=== PATIENT | female | born 1960 | race American Indian/Alaskan Native ===

== ENCOUNTER 2016-11-17 10:41 | Emergency (ER) | payer MEDICARE ==
--- NOTE | 2016-11-17 11:10 | Emergency Department Report ---
ED General Adult HPI - General Chief complaint: Abdominal Pain Stated complaint: ABDOMINAL PAIN/DIARRHEA Time Seen by Provider: 11/17/16 11:00 Source: patient, EMS (ems notes not available at time of chart dictation), RN notes reviewed, old records reviewed Mode of arrival: Stretcher Limitations: Physical Limitation - History of Present Illness Initial comments: This is a 55-year-old female. She is previously unknown to me. Past medical history includes type 2 diabetes, hypertension, stage III chronic kidney disease, heart disease, paroxysmal atrial fibrillation, stroke with residual left-sided hemiparesis, severe peripheral artery disease, history of left-sided below-knee amputation. The patient presents to the ER with a complaint of diarrhea since yesterday, and suprapubic pain and inability to urinate. Her primary care doctor is Dr. Daryl Ross. In the past, she has been seen by nephrology, Dr. Moser Her medical records currently do not indicate that she has a private senior sql developer. The patient declines pain medicine and nausea medicine. The patient cannot describe the color of the diarrhea. She reports multiple episodes overnight. She doesn't think that she is taking antibiotics recently but is not certain. -: Gradual Location: abdomen Radiation: non-radiation Quality: aching Consistency: constant Improves with: other (suprapubic pain improved with placement of a Nunes catheter) Worsens with: movement Associated Symptoms: malaise. denies: confusion, chest pain, cough, shortness of breath, syncope - Related Data Home Medications Medication Instructions Recorded Confirmed Last Taken Nitroglycerin [Nitrostat] 0.4 mg SL Q5M PRN 09/27/15 11/17/16 Unknown Acetaminophen [Tylenol] 325 mg PO Q8H PRN 11/17/16 11/17/16 Unknown Cetirizine HCl [ZyrTEC] 10 mg PO DAILY 11/17/16 11/17/16 Unknown Clopidogrel Bisulfate [Plavix] 75 mg PO DAILY 11/17/16 11/17/16 Unknown Docusate Sodium [Colace] 100 mg PO BID PRN 11/17/16 11/17/16 Unknown Loperamide HCl [Imodium A-D] 2 mg PO Q6H PRN 11/17/16 11/17/16 Unknown NIFEdipine [Nifedipine ER] 60 mg PO BID 11/17/16 11/17/16 Unknown guaiFENesin DM [Robitussin Dm] 15 ml PO Q6HR PRN 11/17/16 11/17/16 Unknown Previous Rx's Medication Instructions Recorded Last Taken Type Metoprolol [Lopressor TAB] 50 mg PO BID tablet 10/04/15 Unknown Rx oxyCODONE /ACETAMINOPHEN [Percocet 1 tab PO Q4HR PRN #30 tablet 10/04/15 Unknown Rx 5/325 mg] Nitrofurantoin [place]/M-Cryst 100 mg PO Q12HR #13 capsule 11/17/16 Unknown Rx [Macrobid CAP] Allergies Allergy/AdvReac Type Severity Reaction Status Date / Time aspirin Allergy Unknown Verified 09/27/15 10:48 iodine Allergy Unknown Verified 09/27/15 10:48 iron Allergy Unknown Verified 09/27/15 10:48 lactose Allergy Unknown Verified 09/27/15 10:48 lisinopril Allergy Unknown Verified 09/27/15 10:48 Penicillins Allergy Unknown Verified 09/27/15 10:48 ED Review of Systems ROS: Stated complaint: ABDOMINAL PAIN/DIARRHEA Other details as noted in HPI Constitutional: malaise Eyes: denies: eye discharge ENT: denies: epistaxis Respiratory: denies: cough Cardiovascular: denies: chest pain Gastrointestinal: abdominal pain, diarrhea Genitourinary: denies: dysuria Musculoskeletal: as per HPI Skin: denies: lesions Neurological: weakness Psychiatric: anxiety ED Past Medical Hx - Past Medical History Previous Medical History?: Yes Hx Hypertension: Yes Hx Congestive Heart Failure: Yes Hx Diabetes: Yes Hx Renal Disease: Yes (CKD STAGE 3) - Surgical History Additional Surgical History: amputatation LLE - Social History Smoking Status: Never Smoker Substance Use Type: None - Medications Home Medications: Home Medications Medication Instructions Recorded Confirmed Last Taken Type Nitroglycerin [Nitrostat] 0.4 mg SL Q5M PRN 09/27/15 11/17/16 Unknown History Metoprolol [Lopressor TAB] 50 mg PO BID tablet 10/04/15 11/17/16 Unknown Rx oxyCODONE /ACETAMINOPHEN [Percocet 1 tab PO Q4HR PRN #30 tablet 10/04/15 Unknown Rx 5/325 mg] Acetaminophen [Tylenol] 325 mg PO Q8H PRN 11/17/16 11/17/16 Unknown History Cetirizine HCl [ZyrTEC] 10 mg PO DAILY 11/17/16 11/17/16 Unknown History Clopidogrel Bisulfate [Plavix] 75 mg PO DAILY 11/17/16 11/17/16 Unknown History Docusate Sodium [Colace] 100 mg PO BID PRN 11/17/16 11/17/16 Unknown History Loperamide HCl [Imodium A-D] 2 mg PO Q6H PRN 11/17/16 11/17/16 Unknown History NIFEdipine [Nifedipine ER] 60 mg PO BID 11/17/16 11/17/16 Unknown History Nitrofurantoin [place]/M-Cryst 100 mg PO Q12HR #13 capsule 11/17/16 Unknown Rx [Macrobid CAP] guaiFENesin DM [Robitussin Dm] 15 ml PO Q6HR PRN 11/17/16 11/17/16 Unknown History ED Physical Exam - General Limitations: Physical Limitation General appearance: alert, in no apparent distress - Head Head exam: Present: atraumatic, normocephalic - Eye Eye exam: Present: normal appearance. Absent: nystagmus - ENT ENT exam: Present: normal orophraynx, mucous membranes moist, normal external ear exam - Neck Neck exam: Present: normal inspection, full ROM. Absent: tenderness, meningismus - Respiratory Respiratory exam: Present: normal lung sounds bilaterally. Absent: respiratory distress, wheezes, rales, rhonchi, stridor, chest wall tenderness, accessory muscle use, decreased breath sounds, prolonged expiratory - Cardiovascular Cardiovascular Exam: Present: regular rate, normal rhythm, normal heart sounds. Absent: bradycardia, tachycardia, irregular rhythm, systolic murmur, diastolic murmur, rubs, gallop - GI/Abdominal GI/Abdominal exam: Present: soft, tenderness (suprapubic tenderness, with no rebound, guarding or peritoneal signs), normal bowel sounds. Absent: distended , guarding, rebound, rigid, pulsatile mass - Extremities Exam Extremities exam: Present: normal inspection, other (status post left lower extremity below-knee amputation). Absent: tenderness, calf tenderness - Back Exam Back exam: Present: normal inspection. Absent: paraspinal tenderness, vertebral tenderness - Neurological Exam Neurological exam: Present: alert, oriented X3, other (Extraocular movements intact. Tongue midline. No facial droop. Facial sensation intact to light touch in the V1, V2, V3 distribution bilaterally. 5 and 5 strength in 4 extremities.. Sensation is intact to light touch in 4 extremities.). Absent: motor sensory deficit - Psychiatric Psychiatric exam: Present: normal affect, normal mood - Skin Skin exam: Present: warm, dry, intact, normal color. Absent: rash ED Course Vital Signs 11/17/16 11/17/16 11/17/16 10:44 10:45 11:00 Temperature 97.8 F Pulse Rate 83 84 79 Respiratory 18 20 Rate Blood Pressure 187/106 181/93 O2 Sat by Pulse 100 100 Oximetry 11/17/16 11/17/16 11/17/16 11:16 11:31 12:00 Temperature 98.4 F Pulse Rate 84 79 Respiratory 12 13 Rate Blood Pressure 181/93 180/92 O2 Sat by Pulse 100 100 Oximetry 11/17/16 11/17/16 11/17/16 12:31 13:01 13:31 Temperature Pulse Rate 77 79 84 Respiratory 15 12 15 Rate Blood Pressure 181/93 179/69 177/96 O2 Sat by Pulse 100 100 100 Oximetry 11/17/16 11/17/16 11/17/16 13:39 14:00 14:30 Temperature Pulse Rate 82 102 H 93 H Respiratory 23 28 H Rate Blood Pressure 177/96 159/98 156/85 O2 Sat by Pulse 100 100 Oximetry 11/17/16 15:01 Temperature Pulse Rate 97 H Respiratory 13 Rate Blood Pressure 153/77 O2 Sat by Pulse 100 Oximetry - Reevaluation(s) Reevaluation #1: 11/17/16 12:20 Differential diagnosis: Colitis, diverticulitis, constipation, obstruction, acute on chronic renal insufficiency, urinary retention, urinary tract infection Assessment and plan: 55-year-old female with complaint of diarrhea, suprapubic pain, and inability to urinate. Renal function worse than before. Potassium acceptable. Has chronic anemia. Urinalysis pending. Noncontrast CT scan of the abdomen and pelvis is pending. She declines pain medication and nausea medication. She did complain of diarrhea, but thus far has not produced a stool sample. Upon placement of a Nunes catheter, 350 mL of clear yellow urine was returned. Reevaluation #2: 11/17/16 12:23 patient is currently in clinical normal sinus at this time, her abdomen is not especially tender, she has a negative lactic acid at this time, therefore I think mesenteric ischemia is very unlikely Reevaluation #3: 11/17/16 13:00 CT scan demonstrates no acute disease. Macrobid ordered for urinary tract infection. Case is discussed with her senior sql developer that has seen her in the past, , who agrees that patient can follow-up with him as an outpatient with Nunes catheter. He recommends 1 L of normal saline. Hydralazine is also ordered. ED Medical Decision Making - Lab Data Result diagrams: 11/17/16 11:31 11/17/16 11:31 Vital Signs 11/17/16 11/17/16 10:45 11:16 Temperature 97.8 F 98.4 F Pulse Rate 84 Respiratory 18 Rate Blood Pressure 187/106 O2 Sat by Pulse 100 Oximetry Lab Results 11/17/16 11/17/16 11/17/16 Range/Units 11:20 11:31 11:31 WBC 6.3 (4.5-11.0) K/mm3 RBC 3.29 L (3.65-5.03) M/mm3 Hgb 9.9 L (10.1-14.3) gm/dl Hct 29.5 L (30.3-42.9) % MCV 89 (79-97) fl MCH 30 (28-32) pg MCHC 34 (30-34) % RDW 13.6 (13.2-15.2) % Plt Count 254 (140-440) K/mm3 Sodium 138 (137-145) mmol/L Potassium 4.2 (3.6-5.0) mmol/L Chloride 105.0 (98-107) mmol/L Carbon Dioxide 19 L (22-30) mmol/L Anion Gap 18 mmol/L BUN 15 (7-17) mg/dL Creatinine 2.4 H (0.7-1.2) mg/dL Estimated GFR 26 ml/min BUN/Creatinine Ratio 6.25 % Glucose 95 (65-100) mg/dL Lactic Acid (0.7-2.0) mmol/L Calcium 8.1 L (8.4-10.2) mg/dL Lipase 16 (13-60) units/L Urine Color Yellow (Yellow) Urine Turbidity Cloudy (Clear) Urine pH 6.0 (5.0-7.0) Ur Specific [place] 1.009 (1.003-1.030) Urine Protein >500 (Negative) mg/dL Urine Glucose (UA) Neg (Negative) mg/dL Urine Ketones Neg (Negative) mg/dL Urine Blood Sm (Negative) Urine Nitrite Neg (Negative) Urine Bilirubin Neg (Negative) Urine Urobilinogen < 2.0 (<2.0) mg/dL Ur Leukocyte Esterase Lg (Negative) Urine WBC (Auto) 169.0 H (0.0-6.0) /HPF Urine RBC (Auto) 3.0 (0.0-6.0) /HPF U Epithel Cells (Auto) < 1.0 (0-13.0) /HPF Urine Bacteria (Auto) 2+ (Negative) /HPF Urine WBC Clumps 3+ /HPF Urine Mucus 3+ /HPF 11/17/16 Range/Units 11:31 WBC (4.5-11.0) K/mm3 RBC (3.65-5.03) M/mm3 Hgb (10.1-14.3) gm/dl Hct (30.3-42.9) % MCV (79-97) fl MCH (28-32) pg MCHC (30-34) % RDW (13.2-15.2) % Plt Count (140-440) K/mm3 Sodium (137-145) mmol/L Potassium (3.6-5.0) mmol/L Chloride (98-107) mmol/L Carbon Dioxide (22-30) mmol/L Anion Gap mmol/L BUN (7-17) mg/dL Creatinine (0.7-1.2) mg/dL Estimated GFR ml/min BUN/Creatinine Ratio % Glucose (65-100) mg/dL Lactic Acid 0.70 (0.7-2.0) mmol/L Calcium (8.4-10.2) mg/dL Lipase (13-60) units/L Urine Color (Yellow) Urine Turbidity (Clear) Urine pH (5.0-7.0) Ur Specific [place] (1.003-1.030) Urine Protein (Negative) mg/dL Urine Glucose (UA) (Negative) mg/dL Urine Ketones (Negative) mg/dL Urine Blood (Negative) Urine Nitrite (Negative) Urine Bilirubin (Negative) Urine Urobilinogen (<2.0) mg/dL Ur Leukocyte Esterase (Negative) Urine WBC (Auto) (0.0-6.0) /HPF Urine RBC (Auto) (0.0-6.0) /HPF U Epithel Cells (Auto) (0-13.0) /HPF Urine Bacteria (Auto) (Negative) /HPF Urine WBC Clumps /HPF Urine Mucus /HPF - Radiology Data Radiology results: pending, report reviewed Critical care attestation.: If time is entered above; I have spent that time in minutes in the direct care of this critically ill patient, excluding procedure time. ED Disposition Clinical Impression: Renal insufficiency, Elevated blood pressure reading Disposition: DC/TX-70 ANOTHER TYPE HLTHCARE Is pt being admited?: No Does the pt Need Aspirin: No Condition: Stable Instructions: Urinary Tract Infection in Women (ED), Chronic Kidney Disease (ED ), Nunes Catheter Placement and Care (ED) Additional Instructions: Keep the Nunes catheter in place. Cultures was sent today, results will be available in the next 3-5 days. Have your primary care doctor contact the medical records department to obtain culture results. Take the antibiotics as directed. Follow-up with a senior sql developer within the next week for further evaluation and management. Please note that laboratory studies suggested urinary tract infection, worsening kidney function. Please note that blood pressure was elevated. It is very important to follow-up either with primary care or nephrology within the next week for your elevated blood pressure. Long-term complications of hypertension/elevated blood pressure include stroke, heart attack, disability, , paralysis, loss of quality of life. Do not take the Nunes catheter out must either a senior sql developer, primary care doctor states to that it is safe to do so. Follow-up with the urologist within the next month. Dr. Peña is a local urologist. Return to the ER right away with new pain, worsened pain, migration of pain, fevers, chills, confusion, chest pain, shortness of breath, nausea or vomiting, inability to tolerate liquid feeds. Avoid consumption of Motrin, ibuprofen, Naprosyn. Prescriptions: Nitrofurantoin [place]/M-Cryst [Macrobid CAP] 100 mg PO Q12HR #13 capsule Referrals: PRIMARY CAREMD [Primary Care Provider] - 3-5 Days MAGGIE FLORES MD [Staff Physician] - 3-5 Days DENISE PEÑA MD [Staff Physician] - 3-5 Days
[2016-11-17 11:57] LABS: Hematocrit 29.5 % (30.3-42.9); Hemoglobin 9.9 gm/dl (10.1-14.3); Mean Corpuscular HGB Conc 34 % (30-34); Mean Corpuscular Hemoglobin 30 pg (28-32); Mean Corpuscular Volume 89 fl (79-97); Platelet Count 254 K/mm3 (140-440); Red Blood Count 3.29 M/mm3 (3.65-5.03); Red Cell Distribution Width 13.6 % (13.2-15.2); White Blood Count 6.3 K/mm3 (4.5-11.0)
[2016-11-17 12:15] LABS: BUN/Creatinine Ratio 6.25; Calcium 8.1 mg/dL (8.4-10.2); Potassium 4.2 mmol/L (3.6-5.0)
[2016-11-17 12:17] LABS: Bacteria,Urine 2+ /HPF (Negative); Bilirubin,Urine NEG (Negative); Blood,Urine SM (Negative); Ketones,Urine NEG (Negative); Leukocyte Esterase,Urine LG (Negative); Mucus,Urine 3+ /HPF; Nitrite,Urine NEG (Negative); Urobilinogen,Urine < 2.0 mg/dL (<2.0)
[2016-11-17 12:20] LABS: Protein,Urine >500 mg/dL (Negative)
--- NOTE | 2016-11-17 12:24 | Cat Scan Report ---
CT OF THE ABDOMEN AND PELVIS WITHOUT CONTRAST HISTORY: Abdominal pain. TECHNIQUE: Helical CT without contrast. Sagittal and coronal reformatted images. FINDINGS: There is hyperdensity within the fundus of the gallbladder consistent with multiple tiny stones. No biliary dilatation or inflammatory changes are appreciated. The liver, biliary system, pancreas, spleen, kidneys, adrenal glands and bladder are unremarkable. The bowel loops are normal caliber and wall thickness. Normal appendix. There are diffuse arterial calcifications but no aneurysm or obvious stenosis. No ascites, bulky adenopathy or inflammatory changes. The uterus and adnexa are within normal limits. The lung bases are clear. Normal heart size. No suspicious bony lesion. IMPRESSION: Cholelithiasis. No acute abdominal process is appreciated. No clear explanation for abdominal pain. No overwhelming change since 10/02/15.
[2016-11-17] MEDS ORDERED: APRESOLINE IV ONE (12:52)
[2016-11-17] MEDS ORDERED: NACL 0.9% 1000 ML 1,000 ML IV ONE (12:52)
[2016-11-17] MEDS ORDERED: MACROBID PO ONE (12:53)
[2016-11-17 15:35] VITALS: BP 153/77
== END 2016-11-17 15:40 | disposition other institution (70) ==
LOC: ED 10:41
DX: N28.9 Disorder of kidney and ureter, unspecified (principal); I13.0 Hypertensive heart and chronic kidney disease with heart failure and stage 1 through stage 4 chronic kidney disease, or unspecified chronic kidney disease; E11.22 Type 2 diabetes mellitus with diabetic chronic kidney disease; N18.3 Chronic kidney disease, stage 3 (moderate); I50.9 Heart failure, unspecified; Z88.0 Allergy status to penicillin; Z91.011 Allergy to milk products; Z88.8 Allergy status to other drugs, medicaments and biological substances
CPT/HCPCS: 36415; 51702; 74176; 80048; 81001; 82140; 83690; 85027; 87086; 96361; 96374; 99284; J0360; J7030